=== PATIENT | female | born 1955 | race Caucasian/White ===

== ENCOUNTER → 2017-08-12 | Outpatient (CLI) | payer BC ==
[~2017-08-12] MED LIST: NO HOME MEDICATIONS; PEPCID 20MG TAB20 MG PO; PHENERGAN 25 TA25 MG PO
== END ==
LOC: MC.RAD 09:40
DX: Z12.31 Encounter for screening mammogram for malignant neoplasm of breast (principal)

== ENCOUNTER → 2018-08-29 | Outpatient (CLI) | payer BC | LOC: MC.RAD 10:40 | DX: Z12.31 Encounter for screening mammogram for malignant neoplasm of breast (principal) ==

== ENCOUNTER → 2019-08-30 | Outpatient (CLI) | payer BC | LOC: MC.RAD 11:44 | DX: Z12.31 Encounter for screening mammogram for malignant neoplasm of breast (principal) ==

== ENCOUNTER 2020-03-23 14:31 | Emergency (ER) | payer BC ==
[~2020-03-23] VITALS: Ht 167.6 cm; Wt 65.0 kg
[2020-03-23 14:40] VITALS: TEMP 97.9
[2020-03-23] MEDS ORDERED: MULTIVITAMIN FO1 CAP PO (14:43)
[2020-03-23] MEDS ORDERED: HAIRSKINNAILS PO (14:44)
[2020-03-23 16:10] VITALS: BP 122/61; PULSE 68
== END 2020-03-23 16:10 | disposition home or self-care (01) ==
LOC: COL.ER 14:31
DX: S52.501A Unspecified fracture of the lower end of right radius, initial encounter for closed fracture (principal); W01.0XXA Fall on same level from slipping, tripping and stumbling without subsequent striking against object, initial encounter; Y92.009 Unspecified place in unspecified non-institutional (private) residence as the place of occurrence of the external cause
CPT/HCPCS: Q4050

== ENCOUNTER → 2020-09-02 | Outpatient (CLI) | payer BC ==
[~2020-09-02] MED LIST changes: +HAIRSKINNAILS PO; +MULTIVITAMIN FO1 CAP PO
== END ==
LOC: MC.RAD 07:40
DX: Z12.31 Encounter for screening mammogram for malignant neoplasm of breast (principal)

== ENCOUNTER → 2021-10-02 | Outpatient (CLI) | payer BC | LOC: MC.RAD 15:43 | DX: Z12.31 Encounter for screening mammogram for malignant neoplasm of breast (principal) ==